=== PATIENT | male | born 1955 | race Caucasian/White ===

== ENCOUNTER 2017-07-31 06:43 | Observation (INO) | payer BC ==
[~2017-07-31] VITALS: Ht 180.3 cm; Wt 102.2 kg
[~2017-07-31 06:43] MED LIST: ESCI10TA PO; LISI10TA3 PO; LORA0.5T PO; OLOP0.15; OLOP1DRO EACH EYE; OXYC1TAB35 PO; PATA0.2S EACH EYE; SIMV20TA PO
[2017-07-31] MEDS ORDERED: OXYMETAZOLINE HCL 0.05% 15 ML NASAL SPRAY ONE ×2 (07:26→11:25)
[2017-07-31] MEDS ORDERED: LIDOCAINE 0.5%/EPINEPHrine 1:200,000 SOLN 50 ML VIAL ONE (07:27)
[2017-07-31] MEDS ORDERED: CHLORHEXIDINE GLUCONATE 2 % 1 PACK (2 CLOTHS) TOPICAL PRN (07:30)
[2017-07-31] MEDS ORDERED: AMPICILLIN/SULBAC 3 GM/NS 100 ML IV PRN ×2 (07:30)
[2017-07-31] MEDS ORDERED: POVIDONE IODINE 5% (ANTISEPSIS KIT) 4 APPLICATIONS EACH NARE PRN (07:30)
[2017-07-31] MEDS ORDERED: SODIUM CHLORID 0.9% 500 ML IV PRN (07:30)
[2017-07-31] MEDS ORDERED: INSULIN HUMAN REGULAR 1,000 UNITS/10 ML VIAL SQ PRN (07:30)
[2017-07-31] MEDS ORDERED: LACTATED RINGER'S 1000 ML IV PRN (07:30)
[2017-07-31] MEDS ORDERED: METOPROLOL TARTRATE 25 MG TAB PO PRN (07:30)
[2017-07-31] MEDS ORDERED: ASPI81TA23 PO (08:49)
[2017-07-31] MEDS ORDERED: CETI-1 PO (08:49)
[2017-07-31] MEDS ORDERED: METF500T PO (09:06)
[2017-07-31] MEDS ORDERED: MIDAZOLAM HCL 2 MG/2 ML VIAL ONE (09:37)
[2017-07-31] MEDS ORDERED: FAMOTIDINE 20 MG/2 ML VIAL ONE (09:37)
[2017-07-31] MEDS ORDERED: ONDANSETRON HCL 4 MG/2 ML VIAL IV PUSH ONE (12:00)
[2017-07-31] MEDS ORDERED: ESMOLOL HCL 100 MG/10 ML VIAL IV ONE (12:00)
[2017-07-31] MEDS ORDERED: PROPOFOL 200 MG/20 ML AMP IV ONE (12:00)
[2017-07-31] MEDS ORDERED: DEXAMETHASONE SOD PHOS 4 MG/ML VIAL IV ONE (12:00)
[2017-07-31] MEDS ORDERED: MORPHINE SULFATE 4 MG/ML INJ ONE (12:31)
[2017-07-31] MEDS ORDERED: HYDROmorphone HCL PF 1 MG/ML VIAL ONE ×2 (12:48→13:56)
[2017-07-31] MEDS ORDERED: ONDANSETRON HCL 4 MG/2 ML VIAL IV PRN (14:00)
[2017-07-31] MEDS ORDERED: MICROFIBRILLAR COLLAGEN HEMOSTAT 1 GM PKT ONE (14:50)
--- NOTE | 2017-07-31 14:54 | EKG ---
Date Performed: 07/31/2017 Time Performed: 08:56:29 PTAGE: 62 years EKG: SINUS BRADYCARDIA BORDERLINE ECG NO PREVIOUS TRACING DOCTOR: Oscar Lyon Interpretating Date/Time 07/31/2017 14:52:55
[2017-07-31 16:30] VITALS: BP 185/91; PULSE 74; RESP 18; TEMP 98.2; O2SAT 94
[2017-07-31] MEDS: ACETAMINOPHEN 325MG/HYDROcodone 7.5MG/15ML UDC PO PRN ×2 (17:05→20:59)
[2017-07-31] MEDS: AMPICILLIN/SULBAC 3 GM/NS 100 ML IV SCH ×2 (17:08)
[2017-07-31] MEDS: LACTATED RINGER'S 1000 ML INJ 1,000 ML IV SCH (17:09)
[2017-07-31 18:00] VITALS: O2SAT 98
[2017-07-31] MEDS: ESCITALOPRAM OXALATE 10 MG TAB PO SCH (18:27)
[2017-07-31] MEDS: LISINOPRIL 10 MG TAB PO SCH ×2 (18:27→19:39)
[2017-07-31] MEDS ORDERED: LORazepam 0.5 MG TAB PO PRN (19:15)
[2017-07-31 20:00] VITALS: BP 173/83; PULSE 86; RESP 18; TEMP 96.9; O2SAT 100
[2017-07-31 20:30] VITALS: O2SAT 99
[2017-08-01] VITALS: BP 168/82; PULSE 80; RESP 18; TEMP 97.8; O2SAT 99
[2017-08-01] MEDS: ACETAMINOPHEN 325MG/HYDROcodone 7.5MG/15ML UDC PO PRN ×2 (01:53→08:37)
[2017-08-01] MEDS: AMPICILLIN/SULBAC 3 GM/NS 100 ML IV SCH ×4 (01:53→10:00)
[2017-08-01 04:00] VITALS: BP 170/81; PULSE 65; RESP 18; TEMP 96.6; O2SAT 100
[2017-08-01] MEDS: LACTATED RINGER'S 1000 ML INJ 1,000 ML IV SCH (04:18)
[2017-08-01 07:51] VITALS: O2SAT 100
[2017-08-01 08:00] VITALS: BP 142/78; PULSE 69; RESP 18; TEMP 97.4; O2SAT 100
[2017-08-01] MEDS: LISINOPRIL 10 MG TAB PO SCH (08:30)
[2017-08-01] MEDS: ESCITALOPRAM OXALATE 10 MG TAB PO SCH (08:30)
--- NOTE | 2017-08-20 08:20 | MP ---
cc: WILBER CEBALLOS M.D. DATE OF SURGERY July 31, [address] Wilber Ceballos PREOPERATIVE DIAGNOSES 1. Nasal airway obstruction. 2. Nasal septal deviation. 3. Adenotonsillar hypertrophy. 4. Chronic tonsillitis. 5. Obstructive sleep apnea. POSTOPERATIVE DIAGNOSES 1. Nasal airway obstruction. 2. Nasal septal deviation. 3. Adenotonsillar hypertrophy. 4. Chronic tonsillitis. 5. Obstructive sleep apnea. OPERATIVE PROCEDURE 1. Open repair nasoseptal fracture. 2. Bilateral submucosal resection of inferior turbinates. 3. Adenotonsillectomy. INDICATIONS Documented in the history and physical. DESCRIPTION OF OPERATION The patient was taken to OR #2 and placed in the supine position. Following induction of general anesthesia and intubation the nose was packed bilaterally with cotton pledgets saturated in 0.05% oxymetazoline. The nasal septal mucosa and the inferior turbinates were injected with 12 mL of 1% Xylocaine with epinephrine 1:100,000. She was then prepped and draped for surgery. The nasal packing was removed and a hemitransfixion incision was made in the left nasal vestibule and through this incision the mucosa of septum was elevated bilaterally as far as the junction of the bony and cartilaginous septum. This exposed the quadrangular cartilage which showed bilateral deviation due to the presence of long healed cartilaginous fractures in the anterior septum A cumulative area of 2 x 2.5 cm was removed preserving 1.5 cm dorsal and caudal cartilaginous struts. The mucosa was then elevated from the bony septum and the maxillary crest and the bony septum was removed with Mohinder-Alexander forceps and Estuardo septal forceps. The maxillary crest was removed using a 6-mm Justin chisel. This was completed preserving the anterior nasal spine. The incision was then closed with a running suture of 4-0 chromic and the mucosal layers of septum were approximated to each other with a quilting stitch of 4-0 plain gut. The inferior turbinates were addressed next; they were fractured out medially and stab incisions were opened along their inferior surfaces. Through these incisions the submucosal soft tissue was reduced using a curette and preserving the conchal bone. The turbinates were reduced approximately 25% in volume. The incisions were then cauterized using the suction Bovie at 35 cabrales and the remnants of the inferior turbinates were then we relateralized to the lateral nasal wall. The nose was then packed with 5.5 cm Rapid Rhino packs and each was inflated with 5 mL of air. The table was then turned 90 degrees and a shoulder roll and a McIvor mouth gag were put in place. The tonsils were removed using the ArthroCare Coblator technique. Numerous sites of bleeding were cauterized using the bipolar cautery and the monopolar cautery. The right tonsil fossa was packed with Avitene microfibrils which were then compressed in place using a dry tonsil sponge for a period of 5 minutes. When this was completed and hemostasis was complete, the adenoids were removed using the suction Bovie at 35 cabrales. The stomach was then aspirated of a few cc's of cloudy gastric contents using an #18 [place] sump NG tube. Following this the mouth gag was removed and the procedure was terminated. The patient was reversed from anesthesia and taken to Recovery in good condition. There were no complications. Blood loss was 80 mL. MD IRA Clemente/DEEP /7:14 AM /8:15 AM
== END 2017-08-01 11:01 | disposition home or self-care (01) ==
LOC: PHSDC 06:43 → PH3A 14:49
PROVIDERS: ADMIT Otolaryngology; ATTEND Otolaryngology
DX: J98.8 Other specified respiratory disorders (principal); J34.2 Deviated nasal septum; J35.01 Chronic tonsillitis; J35.3 Hypertrophy of tonsils with hypertrophy of adenoids; J34.3 Hypertrophy of nasal turbinates; R06.83 Snoring; R09.81 Nasal congestion; G47.33 Obstructive sleep apnea (adult) (pediatric)
CPT/HCPCS: 00160; 21336; 30130; 42821; 88304; 93005; 94762; 96360; G0378; J0295; J1100; J1170; J2250; J2270; J2405; J3010; J7120